=== PATIENT | female | born 2000 | race Caucasian/White ===

== ENCOUNTER 2018-05-21 16:46 | Emergency (ER) | payer OTHER, SELFPAY ==
[2018-05-21 16:49] VITALS: BP 142/70; PULSE 100; RESP 17; TEMP 37.5; O2SAT 96; BMI 37.1
--- NOTE | 2018-05-21 17:17 | ED.VISSUMM ---
- ER Visit Summary Date of Service: 05/21/18 Chief Complaint: Suicidal ideation History of Present Illness: The patient is a 18 F presenting for suicidal ideation. Patient states she has been depressed recently. She does not recall a specific event that started this. She has a history of depression and anxiety. She states that she has had thoughts of jumping off a building over the past couple of weeks. No history of past attempts. She has been hospitalized in the past in [place] for suicidal thoughts. She has had no recent change in her medications. She admits to occasional alcohol use and marijuana use. Physical Examination: Vitals are stable. Patient is afebrile. Alert no acute distress. HEENT exam is unremarkable. Neck is supple. Lungs are clear and equal bilaterally. Heart is regular rate and rhythm. Abdomen is soft nontender nondistended. Extremities are unremarkable. Skin is warm and dry. No focal neurologic deficit. Depressed affect Remainder of exam is unremarkable. Emergency Department Course and Treatment: CBC, chemistry unremarkable. HCG negative. Tox was positive for THC. Alcohol negative. Will discuss with the counseling center for evaluation. Disposition: Per counseling center Impression: Depression, suicidal ideation This note was generated with [employer] dictation software. It may contain incorrect words, spelling, and punctuation that were not noted in review of the chart prior to signing ED Disposition - Plan for ED Patient: Chief Complaint: Suicidal Referrals: Cindy Daily,Out of [Primary Care Provider] -
--- NOTE | 2018-05-21 17:42 | ED.RN ---
PT DENIES SUICIDAL AT THIS TIME. DOES STATE THE LAST FEW WEEKS HAVE BEEN HARD WITH SCHOOL AND SHE HAS A PLAN OF JUMPING OFF A SPECIFIC BUILDING. WAS REFERRED TO BY SCHOOL COUNSELOR FOR THE THOUGHTS. DENIES SUICIDAL OR HOMICIDAL THOUGHTS AT THIS TIME.
--- NOTE | 2018-05-21 17:42 | ED.RN ---
Pt referred to ED for mental health eval. Pt admits to suicidal ideations two weeks ago. Denies suicidal ideations at this time. Dr Nicholson verified pt is not suicidal and does not require a sitter for suicidal ideations at this time.
[2018-05-21 17:44] LABS: Absolute Lymphocyte Count 1.98 X10^3/ul (0.83-4.51); Absolute Neutrophil Count 6.5 X10^3/uL (2.0-7.7); Basophil# 0.04 X10^3/uL; Basophil% 0.4 % (0-1); Eosinophil# 0.14 X10^3/uL; Eosinophils% 1.5 % (0-5); Hematocrit 40.4 % (37-47); Hemoglobin 13.3 g/dl (12.0-15.0); Lymphocyte # 1.98 X10^3/ul (4.0); Lymphocyte % 21.5 % (19-41); Mean Corp Hgb Conc 32.9 g/gl (32-36); Mean Corpuscular Hgb 30.9 pg (27.0-32.0); Mean Platelet Vol. 9.4 fl (6.2-12.0); Monocyte# 0.53 X10^3/uL; Monocyte% 5.8 % (0-10); Neutrophil % 70.7 % (47-70); POSITIVE COUNT NO; POSITIVE DIFFERENTIAL NO; POSITIVE MORPHOLOGY NO; Platelet Count 357 K/mm3 (150-450); RBC Distribution Width CV 12.3 % (11.6-14.6); RBC Distribution Width SD 41.4 fl (35.1-43.9); White Blood Count 9.2 K/mm3 (4.4-11.0)
[2018-05-21 17:55] LABS: Anion Gap 7 (5-15); BUN 16 mg/dL (7-18); Calcium,Total 9.2 mg/dL (8.5-10.1); Chloride 107 mmol/L (98-107); EST Glomerular Filtration Rate 114 mL/min (>60); Est Glom Filt Rate - Afr Amer 138 mL/min (>60); Estimated Creatinine Clearance 115.36 ml/min; Glucose 100 mg/dL (74-106); Potassium 3.7 mmol/L (3.5-5.1); Sodium Level 139 mmol/L (136-145)
[2018-05-21 18:02] LABS: Pregnancy, Serum, hCG Quali. NEGATIVE Negative (0-9 Nonpreg)
[2018-05-21 18:02] LABS: Amphetamine Urine VISTA NEGATIVE (<1000 ng/mL); Barbiturate Urine VISTA NEGATIVE (< 200 ng/mL); Benzodiazepine Urine VISTA NEGATIVE (< 200 ng/mL); Cocaine Urine VISTA NEGATIVE (< 300 ng/mL); Ecstacy Urine VISTA NEGATIVE (< 500 ng/mL); Methadone Urine VISTA NEGATIVE (< 300 ng/mL); PCP Urine VISTA NEGATIVE (< 25 ng/mL); THC Urine VISTA POSITIVE (< 50 ng/mL); Vista UDS pH Range 6
[2018-05-21 18:06] LABS: Alcohol, Blood (Medical)-Serum < 3.0 mg/dL
--- NOTE | 2018-05-21 18:11 | ED.RN ---
TALKED TO [facility]SELING [facility]. [facility] WILL BE COMING OVER
--- NOTE | 2018-05-21 18:46 | ED.RN ---
[facility] HERE TO SEE PT.
--- NOTE | 2018-05-21 19:45 | ED.RN ---
field ironworker has examined patient at this time. Patient poses suicidal risk. At this time patient will be placed in one on one observation of patient NYDIA Ortega at beside with patient observing patient.
[2018-05-21 20:00] VITALS: BP 141/74; PULSE 79; RESP 18; TEMP 37.1; O2SAT 99
--- NOTE | 2018-05-21 20:45 | ED.RN ---
1:1 CONTINUOUS SITTER PLACED AT THE BEDSIDE FOR PATIENT SAFETY AT 1930. WILL CONTINUE TO MONITOR.
--- NOTE | 2018-05-21 21:03 | ED.RN ---
PATIENT REFUSING TO STAY AT HOSPITAL, DENIES BEING SUICIDAL AT THIS TIME. DR. LY AWARE AND PINK SLIP MADE OUT FOR THE PATIENT TO STAY AT THE FACILITY.
[2018-05-21 21:53] VITALS: PULSE 91; RESP 16; O2SAT 97
--- NOTE | 2018-05-21 22:13 | ED.RN ---
report given to shyann at [facility]
[2018-05-21 22:48] VITALS: RESP 18
== END 2018-05-21 22:49 ==
LOC: ED 18:15
PROVIDERS: Emergency Provider Emergency Medicine
DX: F32.9 Major depressive disorder, single episode, unspecified (principal); R45.851 Suicidal ideations; F41.9 Anxiety disorder, unspecified; F12.99 Cannabis use, unspecified with unspecified cannabis-induced disorder; Z72.89 Other problems related to lifestyle; Z79.899 Other long term (current) drug therapy
CPT/HCPCS: 36415; 80048; 80307; 80320; 84703; 85025; 99284; G0480